=== PATIENT | male | born 1965 | race Caucasian/White ===

== ENCOUNTER 2017-01-27 06:38 | Emergency (ER) | payer OTHER ==
[~2017-01-27] VITALS: Ht 172.7 cm; Wt 98.0 kg
[~2017-01-27 06:38] MED LIST: LISI-360 PO; ONDA1TAB16 PO; PERC5TAB12 PO
[2017-01-27 06:44] VITALS: BP 159/85; PULSE 83; RESP 20; TEMP 98.4; O2SAT 96
[2017-01-27] MEDS ORDERED: KETOROLAC TROMETHAMINE 60 MG/2 ML (IM) VIAL IM ONE (07:15)
--- NOTE | 2017-01-27 07:19 | PD ---
HPI Chief Complaint: Musculoskeletal Complaint Time Seen by Provider: 07:14 Travel History International Travel<30 days: No Contact w/Intl Traveler<30days: No Traveled to known affect area: No History of Present Illness HPI This is a 51-year-old male presents with complaints of left sided foot pain. Patient's had previous for pain in the past. Patient states she's been diagnosed with gout. He also reports these been admitted to the hospital but only did not have gout. Patient denies any injury. He reports tenderness in the left lateral portion of his foot. There is no reported fevers, chills. His tenderness is noted associated discomfort. PFSH Past Medical History Cancer: No Cardiovascular Problems: No Chest Pain: Yes Diminished Hearing: No Endocrine: No Genitourinary: No Hypertension: Yes Immune Disorder: No Musculoskeletal: No Neurologic: No Psychiatric: No Reproductive: No Respiratory: No Past Surgical History Abdominal Surgery: No Cardiac Surgery: No Endocrine Surgery: No Eye Surgery: No Genitourinary Surgery: No Gynecologic Surgery: No Thoracic Surgery: No Other Surgery: Yes Social History Alcohol Use: Yes (occas. beer) Tobacco Use: Yes (chews/dips, one can a day) Substance Use: No Allergies-Medications (Allergen,Severity, Reaction): Coded Allergies: penicillin G (Unverified Allergy, Mild, 01/27/17) Reported Meds & Prescriptions Reported Meds & Active Scripts Active Prednisone 20 Mg Tab 40 Mg PO DAILY 5 Days Take 40 mg (2 tablets) daily for 5 days Indomethacin 50 Mg Cap 50 Mg PO TID 7 Days Take with food, milk, or antacids to decrease stomach adverse effects. Zofran Tab (Ondansetron HCl) 4 Mg Tab 4 Mg PO Q6 PRN Percocet 5-325 mg (Oxycodone/Acetaminophen) 1 Tab 1 Tab PO Q6H PRN Reported Lisinopril 10 mg (Lisinopril) 10 Mg Tab 1 Tab PO DAILY Review of Systems Except as stated in HPI: all other systems reviewed are Neg General / Constitutional: No: Fever, Chills Cardiovascular: No: Edema Musculoskeletal: Positive: Pain (left lateral foot), No: Limited ROM, Edema Skin: No Rash, No Lesions Physical Exam Narrative GENERAL: Well-nourished, well-developed patient in no acute distress. SKIN: Focused skin assessment warm/dry. No redness. HEAD: Normocephalic/atraumatic. EYES: No scleral icterus. No injection or drainage. NECK: Supple, trachea midline. CARDIOVASCULAR: Regular rate and rhythm without murmurs, gallops, or rubs. RESPIRATORY: Breath sounds equal bilaterally. No accessory muscle use. GASTROINTESTINAL: Abdomen soft, non-tender, nondistended. MUSCULOSKELETAL: On examination patient's left foot, he had tenderness to palpation on his left lateral foot. There is no bony deformity. There is no redness. There is no lesions. He does have full range of motion. Cap refill is less than 3 seconds. There was a palpable dorsalis pedis pulse. NEUROLOGICAL: Awake and alert. Cranial nerves II through XII intact. Motor grossly within normal limits. Five out of 5 muscle strength in all muscle groups. Normal speech. Data Data Last Documented VS Vital Signs Date Time Temp Pulse Resp B/P (MAP) Pulse Ox O2 Delivery O2 Flow Rate FiO2 01/27/17 06:44 98.4 83 20 159/85 (109) 96 Orders Orders Ketorolac Inj (Toradol Inj) (01/27/17 07:15) MDM Medical Decision Making Medical Screen Exam Complete: Yes Emergency Medical Condition: Yes Differential Diagnosis Gout versus fasciitis versus intrusion Narrative Course 51-year-old male presents today with complaints of pain to his left lateral foot. Patient's had pain previously in the past. He reports the same location. There is no reported injury. There is no obvious deformity noted. There is no evidence of cellulitis. There is no calf tenderness or swelling. The patient be treated with Toradol 60 mg IM times one dose here in the emergency department. He'll be given a prescription for indomethacin, 50 mg 3 times a day 7 days. Also be given a prescription for prednisone 40 mg daily 5 days. He is instructed to return if he develops any worsening pain, redness, swelling or any other reason that concerned him. He is also instructed to follow up with his primary care physician. Diagnosis Primary Impression: Left foot pain Additional Impression: history of left foot bursitis. Additional Instructions: Elevate, ice 24 hours, then moist heat. Med/Other Pt SpecificInfo: Prescription(s) given Scripts Prednisone (Prednisone) 20 Mg Tab 40 MG PO DAILY for 5 Days, #10 TAB 0 Refills Take 40 mg (2 tablets) daily for 5 days Prov: Gregory Mace MD 01/27/17 Indomethacin (Indomethacin) 50 Mg Cap 50 MG PO TID for 7 Days, CAP 0 Refills Take with food, milk, or antacids to decrease stomach adverse effects. Prov: Gregory Mace MD 01/27/17 Disposition: LEFT WITHOUT BEING SEEN Gregory Mace MD Jan 27, 2017 07:19
[2017-01-27] MEDS ORDERED: PRED20 PO (07:20)
[2017-01-27] MEDS ORDERED: INDO50CA PO (07:20)
[2017-01-27 07:27] VITALS: BP 151/88
== END 2017-01-27 07:57 | disposition left against medical advice (07) ==
LOC: PHED 06:38
DX: M79.672 Pain in left foot (principal)
CPT/HCPCS: 96372; 99284; J1885

== ENCOUNTER 2017-08-01 05:26 | Emergency (ER) | payer OTHER ==
[~2017-08-01] VITALS: Ht 172.7 cm; Wt 100.0 kg
[~2017-08-01 05:26] MED LIST changes: +INDO50CA PO; +PRED20 PO
[2017-08-01 05:42] VITALS: BP 143/78; PULSE 91; RESP 18; TEMP 99.8; O2SAT 95
[2017-08-01 07:39] VITALS: BP 147/82; PULSE 97; RESP 18; O2SAT 98
[2017-08-01] MEDS ORDERED: IBUP200C PO (07:45)
--- NOTE | 2017-08-01 08:20 | RADRPT ---
EXAM DATE/TIME: 08/01/2017 08:01 [facility] COMPARISON: No previous studies available for comparison. INDICATIONS : Sudden onset of right knee pain and swelling, no known injury MEDICAL HISTORY : None. SURGICAL HISTORY : None. ENCOUNTER: Initial ACUITY: 2 days PAIN SCORE: 10/10 LOCATION: Right knee FINDINGS: There is a moderate-sized suprapatellar knee joint effusion. Mild degenerative changes are noted invo lving the patellofemoral and femorotibial joints. No acute fracture or dislocation is noted. CONCLUSION: 1. Moderate-sized suprapatellar knee joint effusion. 2. Mild degenerative changes involving the patellofemoral and femorotibial joints. 3. No acute fracture or dislocation. Carroll Garcia MD on August 01, 2017 at 8:15 Board Certified Radiologist. This report was verified electronically.
[2017-08-01] MEDS ORDERED: MORPHINE SULFATE 4 MG/ML INJ IV PUSH ONE (08:30)
[2017-08-01] MEDS ORDERED: LIDOCAINE 1%/EPINEPHrine 1:100,000 SOLN 20 ML VIAL INFIL ONE (08:30)
[2017-08-01 08:49] LABS: AUTOMATED NEUTROPHIL # 7.9 TH/MM3 (1.8-7.7); BASOPHIL # 0.1 TH/MM3 (0-0.2); BASOPHIL % 0.6 % (0.0-2.0); EOSINOPHIL # 0.1 TH/MM3 (0-0.4); EOSINOPHIL % 0.9 % (0.0-4.0); HEMATOCRIT 45.2 % (39.0-51.0); HEMOGLOBIN 14.5 GM/DL (13.0-17.0); LYMPH % 11.2 % (9.0-44.0); LYMPHOCYTE # 1.1 TH/MM3 (1.0-4.8); MEAN CELL VOLUME 86.7 FL (80.0-100.0); MEAN CORPUSCULAR HEMOGLOBIN 27.9 PG (27.0-34.0); MEAN CORPUSCULAR HGB CONC 32.2 % (32.0-36.0); MEAN PLATELET VOLUME 7.9 FL (7.0-11.0); MONO % 7.5 % (0.0-8.0); MONOCYTE # 0.7 TH/MM3 (0-0.9); NEUT % 79.8 % (16.0-70.0); PLATELET COUNT 178 TH/MM3 (150-450); RED BLOOD COUNT 5.21 MIL/MM3 (4.50-5.90); RED CELL DISTRIBUTION WIDTH 12.6 % (11.6-17.2); WHITE BLOOD COUNT 9.9 TH/MM3 (4.0-11.0)
[2017-08-01 09:00] LABS: CALCIUM 8.7 MG/DL (8.5-10.1)
[2017-08-01 09:01] LABS: BICARBONATE 24.2 MEQ/L (21.0-32.0)
[2017-08-01 09:04] LABS: CREATININE 1.1 MG/DL (0.60-1.30)
[2017-08-01 09:40] LABS: WBC, SYNOVIAL FLUID 32900 /MM3 (0-200)
--- NOTE | 2017-08-01 09:58 | PD ---
HPI Chief Complaint: Pain: Acute or Chronic Time Seen by Provider: 07:53 Travel History International Travel<30 days: No Contact w/Intl Traveler<30days: No Traveled to known affect area: No History of Present Illness HPI 52-year-old male arrives due to pain in the right knee for about 2 days. He denies trauma. He reports gradually increasing pain which is now constant worse with palpation or any range of motion. He denies fever. He reports the pain to be severe right now. No similar prior episode has occurred. The patient works in construction. Patient reports walking up and down stairs regularly. PFSH Past Medical History Cancer: No Cardiovascular Problems: No Chest Pain: Yes Diminished Hearing: No Endocrine: No Gout: Yes Genitourinary: No Hypertension: Yes Immune Disorder: No Musculoskeletal: No Neurologic: No Psychiatric: No Reproductive: No Respiratory: No Influenza Vaccination: No ?: Not Past Surgical History Abdominal Surgery: No Cardiac Surgery: No Endocrine Surgery: No Eye Surgery: No Genitourinary Surgery: No Gynecologic Surgery: No Thoracic Surgery: No Other Surgery: Yes Social History Alcohol Use: Yes (occas. beer) Tobacco Use: Yes (chews/dips, one can a day) Substance Use: No Allergies-Medications (Allergen,Severity, Reaction): Coded Allergies: penicillin G (Unverified Allergy, Mild, 08/01/17) Reported Meds & Prescriptions Reported Meds & Active Scripts Active Reported Ibuprofen 200 Mg Cap 0 PO Q4H PRN Review of Systems Except as stated in HPI: all other systems reviewed are Neg General / Constitutional: No: Fever Physical Exam Narrative GENERAL: 52-year-old male pleasant well-nourished well-developed Vital Signs Date Time Temp Pulse Resp B/P (MAP) Pulse Ox O2 Delivery O2 Flow Rate FiO2 08/01/17 08:53 18 08/01/17 07:39 97 18 147/82 (103) 98 08/01/17 05:42 99.8 91 18 143/78 (99) 95 SKIN: Warm and dry. HEAD: Atraumatic. Normocephalic. EYES: Pupils equal and round. No scleral icterus. No injection or drainage. ENT: No nasal bleeding or discharge. Mucous membranes pink and moist. NECK: Trachea midline. No JVD. CARDIOVASCULAR: Regular rate and rhythm. RESPIRATORY: No accessory muscle use. Clear to auscultation. Breath sounds equal bilaterally. GASTROINTESTINAL: Abdomen soft, non-tender, nondistended. Hepatic and splenic margins not palpable. MUSCULOSKELETAL: There is generalized swelling about the right knee with tenderness palpation and ballottement of the patella. Range of motion elicits pain. No calf swelling or tenderness. There is no erythema or induration about the right knee. NEUROLOGICAL: Awake and alert. No obvious cranial nerve deficits. Motor grossly within normal limits. Five out of 5 muscle strength in the arms and legs. Normal speech. PSYCHIATRIC: Appropriate mood and affect; insight and judgment normal. Data Data Last Documented VS Vital Signs Date Time Temp Pulse Resp B/P (MAP) Pulse Ox O2 Delivery O2 Flow Rate FiO2 08/01/17 08:53 18 08/01/17 07:39 97 147/82 (103) 98 08/01/17 05:42 99.8 Vital signs reviewed Orders Orders Knee, Complete (4vws) (08/01/17 ) Lidocai-Epi 1%-1:100,000 Inj (Xylocaine- (08/01/17 08:30) Synovial Fl Cell Count + Diff (08/01/17 08:26) Synovial Fluid Crystals (08/01/17 08:26) Synovial Fluid Glucose (08/01/17 08:26) Fluid Culture And Gram Stain (08/01/17 08:26) Basic Metabolic Panel (Bmp) (08/01/17 08:26) Complete Blood Count With Diff (08/01/17 08:26) Iv Access Insert/Monitor (08/01/17 08:26) Morphine Inj (Morphine Inj) (08/01/17 08:30) Vancomycin Inj (Vancomycin Inj) (08/01/17 10:00) Ceftriaxone Inj (Rocephin Inj) (08/01/17 10:00) Admit To Inpatient (08/01/17 ) Vital Signs (Adult) Q4H (08/01/17 10:08) Activity Oob With Assistance (08/01/17 10:08) Sodium Chloride 0.9% Flush (Ns Flush) (08/01/17 10:15) Sodium Chloride 0.9% Flush (Ns Flush) (08/01/17 21:00) Acetaminophen (Tylenol) (08/01/17 10:15) Ondansetron Inj (Zofran Inj) (08/01/17 10:15) Naloxone Inj (Narcan Inj) (08/01/17 10:15) Magnesium Hydroxide Liq (Milk Of Magnesi (08/01/17 10:15) Morphine Inj (Morphine Inj) (08/01/17 10:15) Acetamin-Hydrocod 325-7.5 Mg ([place] 7.5 (08/01/17 10:15) Vancomycin Consult Pharmacy (Vancomycin (08/01/17 10:15) Ceftriaxone Inj (Rocephin Inj) (08/02/17 09:00) Consult Orthopedic (08/01/17 ) Admit Order (Ed Use Only) (08/01/17 ) Vital Signs (Adult) Q4H (08/01/17 10:11) Diet Npo (08/01/17 Lunch) Activity Bed Rest (08/01/17 10:11) Consult Orthopedic (08/01/17 ) Labs Laboratory Tests Test 08/01/17 08:40 08/01/17 09:08 White Blood Count 9.9 TH/MM3 Red Blood Count 5.21 MIL/MM3 Hemoglobin 14.5 GM/DL Hematocrit 45.2 % Mean Corpuscular Volume 86.7 FL Mean Corpuscular Hemoglobin 27.9 PG Mean Corpuscular Hemoglobin Concent 32.2 % Red Cell Distribution Width 12.6 % Platelet Count 178 TH/MM3 Mean Platelet Volume 7.9 FL Neutrophils (%) (Auto) 79.8 % Lymphocytes (%) (Auto) 11.2 % Monocytes (%) (Auto) 7.5 % Eosinophils (%) (Auto) 0.9 % Basophils (%) (Auto) 0.6 % Neutrophils # (Auto) 7.9 TH/MM3 Lymphocytes # (Auto) 1.1 TH/MM3 Monocytes # (Auto) 0.7 TH/MM3 Eosinophils # (Auto) 0.1 TH/MM3 Basophils # (Auto) 0.1 TH/MM3 CBC Comment DIFF FINAL Differential Comment Blood Urea Nitrogen 12 MG/DL Creatinine 1.10 MG/DL Random Glucose 147 MG/DL Calcium Level 8.7 MG/DL Sodium Level 135 MEQ/L Potassium Level 4.3 MEQ/L Chloride Level 102 MEQ/L Carbon Dioxide Level 24.2 MEQ/L Anion Gap 9 MEQ/L Estimat Glomerular Filtration Rate 70 ML/MIN Synovial Fluid Color YELLOW Synovial Fluid Appearance MARKED Synovial Fluid WBC 44173 /MM3 Synovial Fluid RBC 3900 /MM3 Synovial Fluid Neutrophils 97 % Synovial Fluid Lymphocytes 7 % Synovial Fluid Monocytes 1 % MDM Medical Decision Making Medical Screen Exam Complete: Yes Emergency Medical Condition: Yes Differential Diagnosis Septic arthritis, hemarthrosis, crystalloid joint disease Narrative Course CBC & BMP Diagram 08/01/17 08:40 Calcium Level 8.7 Synovial fluid revealed 32,900 white blood cells 92% neutrophils Rocephin and vancomycin started The patient will be admitted for IV antibiotics and orthopedics consultation d/w ines marti for ortho d/w dr bob for [facility] Diagnosis Primary Impression: Arthritis Admitting Information Admitting Physician Requests: Admit Marcos Gonzalez MD Aug 01, 2017 09:58
[2017-08-01] MEDS ORDERED: cefTRIAXone INJ 2,000 MG in SODIUM CHLORIDE 0.9% INJ 100 ML IV ONE (10:00)
[2017-08-01] MEDS ORDERED: VANCOMYCIN INJ 1,500 MG in SODIUM CHLORID 0.9% 500 ML INJ 500 ML IV ONE (10:00)
[2017-08-01] MEDS ORDERED: MAGNESIUM HYDROXIDE SUSP 30 ML CUP PO PRN (10:15)
[2017-08-01] MEDS ORDERED: SODIUM CHLORIDE 0.9% FLUSH 10 ML FLUSH IV FLUSH PRN (10:15)
[2017-08-01] MEDS ORDERED: NALOXONE HCL 0.4 MG/ML AMP IV PUSH PRN (10:15)
[2017-08-01] MEDS ORDERED: ONDANSETRON HCL 4 MG/2 ML VIAL IVP PRN (10:15)
[2017-08-01] MEDS ORDERED: VANCOMYCIN INJ 1,000 MG in SODIUM CHLOR 0.9% 250 ML INJ 250 ML IV SCH (10:15)
[2017-08-01] MEDS ORDERED: Vancomycin Consult Pharmacy 1 EA OTHER SCH (10:15)
[2017-08-01] MEDS ORDERED: MORPHINE SULFATE 4 MG/ML INJ IV PUSH PRN (10:15)
[2017-08-01] MEDS ORDERED: ACETAMINOPHEN/HYDROcodone 325 MG/7.5 MG TAB PO PRN (10:15)
[2017-08-01] MEDS ORDERED: ACETAMINOPHEN 325 MG TAB PO PRN (10:15)
[2017-08-01 10:17] VITALS: BP 145/92; PULSE 90; RESP 18; TEMP 99.1; O2SAT 97
[2017-08-01] MEDS ORDERED: SODIUM CHLOR 0.9% 1000 ML INJ 1,000 ML IV SCH (11:00)
[2017-08-01] MEDS ORDERED: amLODIPine BESYLATE 5 MG TAB PO SCH (11:00)
--- NOTE | 2017-08-01 11:00 | HHI.HP ---
[facility] Tony Garrett MD Admission Diagnosis R Knee Arthritis Poss Septic Diagnoses: Chief Complaint: Right knee swelling Travel History International Travel<30 Days: No Contact w/Intl Traveler <30 Da: No Traveled to Known Affected Are: No History of Present Illness Patient is a 52-year-old gentleman with a history of right knee swelling for 1 day. He notes no trauma to the area or recent procedures. He did have arthroscopic over 30 years ago. He ambulates daily. Over the last 24 hours he cannot apply pressure to his lower extremity and came to the emergency room complains of pain. He had a large effusion on exam and on x-ray there is a moderate-sized prepatellar effusion. He has since been drained and cultures are worrisome for joint infection. Patient is admitted to the hospital due to septic joint Review of Systems Constitutional: DENIES: Diaphoretic episodes, Fatigue, Fever, Weight gain, Weight loss, Chills, Dizziness, Change in appetite, Night Sweats Endocrine: DENIES: Heat/cold intolerance, Polydipsia, Polyuria, Polyphagia Eyes: DENIES: Blurred vision, Diplopia, Eye inflammation, Eye pain, Vision loss , Photosensitivity, Double Vision Ears, nose, mouth, throat: DENIES: Tinnitus, Hearing loss, Vertigo, Nasal discharge, Oral lesions, Throat pain, Hoarseness, Ear Pain, Running Nose, Epistaxis, Sinus Pain, Toothache, Odynophagia Respiratory: DENIES: Apneas, Cough, Snoring, Wheezing, Hemoptysis, Sputum production, Shortness of breath Cardiovascular: DENIES: Chest pain, Palpitations, Syncope, Dyspnea on Exertion , PND, Lower Extremity Edema, Orthopnea, Claudication Gastrointestinal: DENIES: Abdominal pain, Black stools, Bloody stools, Constipation, Diarrhea, Nausea, Vomiting, Difficulty Swallowing, Anorexia Genitourinary: DENIES: Sexual dysfunction, Urinary frequency, Urinary incontinence, Urgency, Hematuria, Dysuria, Nocturia, Penile Discharge, Testicular Pain, Testicular Swelling Musculoskeletal: COMPLAINS OF: Joint pain, Joint Swelling, DENIES: Muscle aches , Stiffness, Back pain, Neck pain Integumentary: DENIES: Abnormal pigmentation, Nail changes, Pruritus, Rash Hematologic/lymphatic: DENIES: Bruising, Lymphadenopathy Immunologic/allergic: DENIES: Eczema, Urticaria Neurologic: DENIES: Abnormal gait, Headache, Localized weakness, Paresthesias, Seizures, Speech Problems, Tremor, Poor Balance Psychiatric: DENIES: Anxiety, Confusion, Mood changes, Depression, Hallucinations, Agitation, Suicidal Ideation, Homicidal Ideation, Delusions Except as stated in HPI: all other systems reviewed are Neg Past Family Social History Past Medical History Hypertension, not on therapy for nonadherence Past Surgical History Right knee arthroscopically over 30 years ago Reported Medications Reviewed in the EMR Allergies: Coded Allergies: penicillin G (Unverified Allergy, Mild, 08/01/17) Active Ordered Medications Reviewed in the EMR Family History Parents are alive and well Social History No tobacco, works with [employer] daily Lives with his girlfriend Physical Exam Vital Signs Vital Signs Date Time Temp Pulse Resp B/P (MAP) Pulse Ox O2 Delivery O2 Flow Rate FiO2 08/01/17 10:45 18 08/01/17 10:17 99.1 90 18 145/92 (109) 97 08/01/17 08:53 18 08/01/17 07:39 97 18 147/82 (103) 98 08/01/17 05:42 99.8 91 18 143/78 (99) 95 Physical Exam GENERAL: This is a well-nourished, well-developed patient, in no apparent distress. SKIN: No rashes, ecchymoses or lesions. Cool and dry. HEAD: Atraumatic. Normocephalic. No temporal or scalp tenderness. EYES: Pupils equal round and reactive. Extraocular motions intact. No scleral icterus. No injection or drainage. ENT: Nose without bleeding, purulent drainage or septal hematoma. Throat without erythema, tonsillar hypertrophy or exudate. Uvula midline. Airway patent. NECK: Trachea midline. No JVD or lymphadenopathy. Supple, nontender, no meningeal signs. CARDIOVASCULAR: Regular rate and rhythm without murmurs, gallops, or rubs. RESPIRATORY: Clear to auscultation. Breath sounds equal bilaterally. No wheezes , rales, or rhonchi. GASTROINTESTINAL: Abdomen soft, non-tender, nondistended. No hepato-splenomegaly , or palpable masses. No guarding. MUSCULOSKELETAL: Right knee painful and swollen, other 3 extremities without clubbing, cyanosis, or edema. No joint tenderness, effusion, or edema noted. No calf tenderness. Negative Homans sign bilaterally. NEUROLOGICAL: Awake and alert. Cranial nerves II through XII intact. Motor and sensory grossly within normal limits. Five out of 5 muscle strength in all muscle groups. Normal speech. Laboratory Laboratory Tests Test 08/01/17 08:40 08/01/17 09:08 White Blood Count 9.9 Red Blood Count 5.21 Hemoglobin 14.5 Hematocrit 45.2 Mean Corpuscular Volume 86.7 Mean Corpuscular Hemoglobin 27.9 Mean Corpuscular Hemoglobin Concent 32.2 Red Cell Distribution Width 12.6 Platelet Count 178 Mean Platelet Volume 7.9 Neutrophils (%) (Auto) 79.8 Lymphocytes (%) (Auto) 11.2 Monocytes (%) (Auto) 7.5 Eosinophils (%) (Auto) 0.9 Basophils (%) (Auto) 0.6 Neutrophils # (Auto) 7.9 Lymphocytes # (Auto) 1.1 Monocytes # (Auto) 0.7 Eosinophils # (Auto) 0.1 Basophils # (Auto) 0.1 CBC Comment DIFF FINAL Differential Comment Blood Urea Nitrogen 12 Creatinine 1.10 Random Glucose 147 Calcium Level 8.7 Sodium Level 135 Potassium Level 4.3 Chloride Level 102 Carbon Dioxide Level 24.2 Anion Gap 9 Estimat Glomerular Filtration Rate 70 Synovial Fluid Color YELLOW Synovial Fluid Appearance MARKED Synovial Fluid WBC 95175 Synovial Fluid RBC 3900 Synovial Fluid Neutrophils 97 Synovial Fluid Lymphocytes 7 Synovial Fluid Monocytes 1 Date/Time Source Procedure Growth Status 08/01/17 09:08 Fluid Synovial Fluid Gram Stain - Final Resulted 08/01/17 09:08 Fluid Synovial Fluid Body Fluid Culture Pending Resulted Result Diagram: 08/01/17 0840 08/01/17 0840 Imaging Right knee x-ray shows moderate sized prepatellar effusion Septic Shock Reassessment Septic shock perfusion: reassessment completed Caprini VTE Risk Assessment Caprini VTE Risk Assessment: Mod/High Risk (score >= 2) Caprini Risk Assessment Model Point Value = 1 Point Value = 2 Point Value = 3 Point Value = 5 Age 41-60 Minor surgery BMI > 25 kg/m2 Swollen legs Varicose veins or History of unexplained or recurrent spontaneous Oral contraceptives or hormone replacement Sepsis (< 1 month) Serious lung disease, including pneumonia (< 1 month) Abnormal pulmonary function Acute myocardial infarction Congestive heart failure (< 1 month) History of inflammatory bowel disease Medical patient at bed rest Age 61-74 Arthroscopic surgery Major open surgery (> 45 min) Laparoscopic surgery (> 45 min) Malignancy Confined to bed (> 72 hours) Immobilizing plaster cast Central venous access Age >= 75 History of VTE Family history of VTE Factor V Leiden Prothrombin [id number] Lupus anticoagulant Anticardiolipin antibodies Elevated serum homocysteine Heparin-induced thrombocytopenia Other congenital or acquired thrombophilia Stroke (< 1 month) Elective arthroplasty Hip, pelvis, or leg fracture Acute spinal cord injury (< 1 month) Prophylaxis Regimen Total Risk Factor Score Risk Level Prophylaxis Regimen 0-1 Low Early ambulation 2 Moderate Order ONE of the following: *Sequential Compression Device (SCD) *Heparin 5000 units SQ BID 3-4 Higher Order ONE of the following medications: *Heparin 5000 units SQ TID *Enoxaparin/Lovenox 40 mg SQ daily (WT < 150 kg, CrCl > 30 mL/min) *Enoxaparin/Lovenox 30 mg SQ daily (WT < 150 kg, CrCl > 10-29 mL/min) *Enoxaparin/Lovenox 30 mg SQ BID (WT < 150 kg, CrCl > 30 mL/min) AND/OR *Sequential Compression Device (SCD) 5 or more Highest Order ONE of the following medications: *Heparin 5000 units SQ TID (Preferred with Epidurals) *Enoxaparin/Lovenox 40 mg SQ daily (WT < 150 kg, CrCl > 30 mL/min) *Enoxaparin/Lovenox 30 mg SQ daily (WT < 150 kg, CrCl > 10-29 mL/min) *Enoxaparin/Lovenox 30 mg SQ BID (WT < 150 kg, CrCl > 30 mL/min) AND *Sequential Compression Device (SCD) Assessment and Plan Problem List: (1) Hypertension ICD Code: I10 - Hypertension Status: Acute Plan: Medications as needed (2) Septic joint of left knee joint ICD Code: M00.9 - Pyogenic arthritis, unspecified Plan: Continue with IV narcotics for pain IV antibiotics Follow-up orthopedics in consultation Cultures pending Code Status full code Physician Certification 2 Midnight Certification Type: Admission for Inpatient Services Order for Inpatient Services The services are ordered in accordance with Medicare regulations or non- Medicare payer requirements, as applicable. In the case of services not specified as inpatient-only, they are appropriately provided as inpatient services in accordance with the 2-midnight benchmark. Estimated LOS (days): 3 3 days is the estimated time the patient will need to remain in the hospital, assuming treatment plan goals are met and no additional complications. Post-Hospital Plan: Nanette Ramey MD Aug 01, 2017 11:00
[2017-08-01 13:22] VITALS: BP 164/88; PULSE 73; RESP 18; O2SAT 99
[2017-08-01] MEDS ORDERED: INDO50CA PO (13:35)
[2017-08-01] MEDS ORDERED: PERC5TAB12 PO (13:35)
[2017-08-01] MEDS ORDERED: PRED20 PO (13:40)
[2017-08-01] MEDS ORDERED: oxyCODONE/ACETAMINOPHEN 5 MG/325 MG TAB PO ONE (13:45)
[2017-08-01 14:39] VITALS: RESP 18
[2017-08-01] MEDS ORDERED: SODIUM CHLORIDE 0.9% FLUSH 10 ML FLUSH IV FLUSH SCH (21:00)
[2017-08-01] MEDS ORDERED: VANCOMYCIN 1,500 MG/NS 500 ML IV SCH ×2 (23:00)
[2017-08-02] MEDS ORDERED: cefTRIAXone INJ 1,000 MG in SODIUM CHLORIDE 0.9% INJ 100 ML IV SCH (09:00)
[2017-08-02] MEDS ORDERED: PHARMACY ORDERED LAB ONE (22:45)
== END 2017-08-01 14:47 | disposition home or self-care (01) ==
LOC: PHED 05:26 → PHEDA 10:14 → UNDOADMIN 10:14 → PHED 14:47 → UNDODISIN 14:47
DX: M10.9 Gout, unspecified (principal); I10 Essential (primary) hypertension; F17.220 Nicotine dependence, chewing tobacco, uncomplicated; Z88.0 Allergy status to penicillin
CPT/HCPCS: 73564; 80048; 82945; 85025; 87070; 87205; 89051; 89060; 96374; 96375; 99285; E0113; J0696; J2270; J3370; J7030; J7040